=== PATIENT | female | born 1995 | race Caucasian/White ===

== ENCOUNTER 2022-04-26 13:11 | Inpatient (IN) | payer MEDICAID ==
[2022-04-26] MEDS ORDERED: Acetaminophen 325 MG Tab PO PRN (15:00)
[2022-04-26] MEDS ORDERED: Terbutaline 1 MG/ML SDV SUBCUT PRN (15:00)
[2022-04-26] MEDS ORDERED: Oxytocin/0.9 % Sodium Chloride 30 UNIT/500 ML BAG IV SCH (15:00)
[2022-04-26] MEDS: Misoprostol 25 MCG (1/4 of 100 MCG) Tab PO SCH ×4 (15:32→21:47)
[2022-04-27] MEDS: Misoprostol 25 MCG (1/4 of 100 MCG) Tab PO SCH ×2 (00:22→02:26)
[2022-04-27] MEDS: Lactated Ringers 1,000 ML IV SCH ×3 (02:30→07:27)
[2022-04-27] MEDS ORDERED: Ropivacaine/PF 400 MG/200 ML PCA ONE (02:59)
[2022-04-27] MEDS ORDERED: Dexmedetomidine 200 MCG/2 ML SDV ONE (02:59)
[2022-04-27] MEDS ORDERED: ePHEDrine 50 MG/ML SDV IVPUSH PRN ×2 (03:11)
[2022-04-27] MEDS ORDERED: Phenylephrine HCl In 0.9% NaCl 1 MG/10 ML Vial IVPUSH PRN (03:11)
[2022-04-27] MEDS ORDERED: Ropivacaine HCl/PF 400 MG in Premix Bag 1 BAG EPIDUR SCH (03:15)
[2022-04-27] MEDS ORDERED: Phenylephrine HCl In 0.9% NaCl 1 MG/10 ML Vial IVPUSH SCH (03:15)
[2022-04-27] MEDS: Phenylephrine HCl 0.5 MG/5 ML AMP ONE ×2 (04:15→06:26)
[2022-04-27] MEDS ORDERED: Ondansetron 4 MG/2 ML SDV ONE (04:26)
[2022-04-27] MEDS ORDERED: Sodium Chloride 0.9% 20 ML SDV IV PRN (04:56)
[2022-04-27] MEDS ORDERED: Carboprost Tromethamine 250 MCG/1 ML Amp IM PRN (04:56)
[2022-04-27] MEDS ORDERED: Tranexamic Acid 1,000 MG in Sodium Chloride 0.9% 100 ML IV PRN ×2 (04:56→13:43)
[2022-04-27] MEDS ORDERED: Methylergonovine 0.2 MG/1 ML Amp IM PRN ×2 (04:56→13:43)
[2022-04-27] MEDS ORDERED: Butorphanol 1 MG/ML SDV IVPUSH PRN (04:56)
[2022-04-27] MEDS ORDERED: Sodium Chloride 0.9% 2.5 ML Syringe FLUSH PRN (04:56)
[2022-04-27] MEDS ORDERED: Water For Irrigation,Sterile 1,000 ML Container IRR PRN (04:56)
[2022-04-27] MEDS ORDERED: Terbutaline 1 MG/ML SDV SUBCUT PRN (04:56)
[2022-04-27] MEDS ORDERED: Sodium Chloride 0.9% 10 ML Syringe FLUSH PRN (04:56)
[2022-04-27] MEDS ORDERED: Ondansetron 4 MG/2 ML SDV IVPUSH PRN ×2 (04:56→13:43)
[2022-04-27] MEDS ORDERED: Lidocaine 1% 50 ML MDV INJECT PRN (04:56)
[2022-04-27] MEDS ORDERED: Misoprostol 200 MCG Tab PO PRN (04:56)
[2022-04-27] MEDS ORDERED: Oxytocin/0.9 % Sodium Chloride 30 UNIT/500 ML BAG IV SCH ×2 (05:00)
[2022-04-27] MEDS ORDERED: ceFAZolin 2 GM in Sodium Chloride 0.9% 50 ML IV ONE (09:39)
[2022-04-27] MEDS ORDERED: Simethicone 80 MG Tab.Chew PO PRN (13:43)
[2022-04-27] MEDS ORDERED: Acetaminophen 500 MG Tab PO PRN (13:43)
[2022-04-27] MEDS ORDERED: Docusate Sodium 100 MG Cap PO PRN (13:43)
[2022-04-27] MEDS ORDERED: Famotidine 20 MG Tab PO PRN (13:43)
[2022-04-27] MEDS ORDERED: oxyCODONE 5 MG Tab PO PRN (13:43)
[2022-04-27] MEDS ORDERED: Witch Hazel Medicated Pads 40/Jar TOP PRN (13:43)
[2022-04-27] MEDS ORDERED: Benzocaine/Menthol 20%-0.5% Spray 78 GM Cannister TOP PRN (13:43)
[2022-04-27] MEDS ORDERED: Misoprostol 200 MCG Tab RECTAL PRN (13:43)
[2022-04-27] MEDS ORDERED: Bisacodyl 10 MG Supp RECTAL PRN (13:43)
[2022-04-27] MEDS ORDERED: Aluminum Hydroxide/Magnesium Hydroxide/Simethicone XS Susp 30 ML Cup PO PRN (13:43)
[2022-04-27] MEDS ORDERED: Lanolin 100% Cream 7 GM Tube TOP PRN (13:43)
[2022-04-27] MEDS: Ibuprofen 800 MG Tab PO PRN (15:34)
[2022-04-27] MEDS: Acetaminophen 500 MG Tab PO PRN (15:35)
[2022-04-28] MEDS: Ibuprofen 800 MG Tab PO PRN (07:25)
[2022-04-28] MEDS: Acetaminophen 500 MG Tab PO PRN (13:15)
== END 2022-04-28 17:50 | disposition home or self-care (01) | DRG 807 ==
LOC: MW.OBCHECK 13:11 → MW.OB 13:13 → MW.OBCHECK 04-27 04:56 → MW.OB 04-27 04:57 → OBSVTOIN 04-27 13:17 → MW.OB 04-27 17:58
PROVIDERS: ADMIT Obstetrics & Gynecology; ATTEND Obstetrics & Gynecology
PROC: 10E0XZZ Delivery of Products of Conception, External Approach (ICD-10-PCS; principal; 2022-04-27)
PROC: 0HQ9XZZ Repair Perineum Skin, External Approach (ICD-10-PCS; 2022-04-27)
PROC: 3E0R3BZ Introduction of Anesthetic Agent into Spinal Canal, Percutaneous Approach (ICD-10-PCS; 2022-04-27)
PROC: 00HU33Z Insertion of Infusion Device into Spinal Canal, Percutaneous Approach (ICD-10-PCS; 2022-04-27)
PROC: 3E033VJ Introduction of Other Hormone into Peripheral Vein, Percutaneous Approach (ICD-10-PCS; 2022-04-27)
PROC: 3E0P7VZ Introduction of Hormone into Female Reproductive, Via Natural or Artificial Opening (ICD-10-PCS; 2022-04-27)
DX: O48.0 Post-term pregnancy (principal); Z37.0 Single live birth; Z20.822 Contact with and (suspected) exposure to COVID-19; O26.893 Other specified pregnancy related conditions, third trimester; O77.0 Labor and delivery complicated by meconium in amniotic fluid; O70.0 First degree perineal laceration during delivery; Z67.41 Type O blood, Rh negative; Z3A.40 40 weeks gestation of pregnancy
CPT/HCPCS: 36415; 51702; 59025; 59409; 81003; 84112; 85014; 85018; 85027; 86592; 86850; 86900; 86901; A9270-GY; J0690; J2370; J2405; J2590; J2795; J3490; J7050; J7120; U0002

== ENCOUNTER 2023-02-28 16:57 | Emergency (ER) | payer MEDICAID ==
[2023-02-28] MEDS ORDERED: Ibuprofen 600 MG Tab PO ONE (17:50)
[2023-02-28] MEDS ORDERED: Acetaminophen 500 MG Tab PO ONE (17:50)
[2023-02-28 18:45] LABS: CORONAVIRUS COVID-19 NAA NEGATIVE (NEGATIVE); INFLUENZA A NAA NEGATIVE (NEGATIVE); INFLUENZA B NAA NEGATIVE (NEGATIVE); RESPIRATORY SYNCYTIAL VIR NAA NEGATIVE (NEGATIVE)
== END 2023-02-28 19:08 | disposition home or self-care (01) ==
LOC: MW.ED 16:57
DX: J02.9 Acute pharyngitis, unspecified (principal)
CPT/HCPCS: 0241U; 87651; 99285; A9270; 93010; 99284

== ENCOUNTER 2024-03-06 05:14 | Inpatient (IN) | payer MEDICAID ==
[2024-03-06] MEDS ORDERED: Ondansetron 4 MG/2 ML SDV IVPUSH PRN (05:23)
[2024-03-06] MEDS ORDERED: Tranexamic Acid in NACL,ISO-OS 1,000 MG in Premix Bag 1 BAG IV PRN (05:23)
[2024-03-06] MEDS ORDERED: Misoprostol 200 MCG Tab PO PRN (05:23)
[2024-03-06] MEDS ORDERED: Sodium Chloride 0.9% 2.5 ML Syringe FLUSH PRN (05:23)
[2024-03-06] MEDS ORDERED: Lidocaine 1% 50 ML MDV INJECT PRN (05:23)
[2024-03-06] MEDS ORDERED: Sodium Chloride 0.9% 10 ML Syringe FLUSH PRN (05:23)
[2024-03-06] MEDS ORDERED: Methylergonovine 0.2 MG/1 ML Amp IM PRN (05:23)
[2024-03-06] MEDS ORDERED: Terbutaline 1 MG/ML SDV SUBCUT PRN (05:23)
[2024-03-06] MEDS ORDERED: Water For Irrigation,Sterile 1,000 ML Container IRR PRN (05:23)
[2024-03-06] MEDS ORDERED: Sodium Chloride 0.9% 20 ML SDV IV PRN (05:23)
[2024-03-06] MEDS ORDERED: Carboprost Tromethamine 250 MCG/1 mL Vial IM PRN (05:23)
[2024-03-06] MEDS ORDERED: Butorphanol 2 MG/ML SDV IVPUSH PRN (05:23)
[2024-03-06] MEDS ORDERED: Oxytocin/0.9 % Sodium Chloride 30 UNIT/500 ML BAG IV SCH (05:30)
[2024-03-06] MEDS: Lactated Ringers 1,000 ML IV SCH (06:15)
[2024-03-06] MEDS: Misoprostol 25 MCG (1/4 of 100 MCG) Tab VAG PRN ×2 (06:18→10:23)
[2024-03-06 06:43] LABS: HEMATOCRIT 35.7 % (37.0-47.0); HEMOGLOBIN 11.6 g/dL (12.0-16.0); MEAN CORPUSCULAR HEMOGLOBIN 25.7 pg (28.0-32.0); MEAN CORPUSCULAR HGB CONC 32.5 g/dL (32.0-36.0); MEAN PLATELET VOLUME 11.7 fL (9.4-12.3); PLATELET COUNT,PLT 196 K/uL (150-400); RED BLOOD CELL COUNT 4.52 M/uL (4.10-5.30); WHITE BLOOD CELL COUNT,WBC 7.01 K/uL (3.9-11.3)
[2024-03-06 12:33] LABS: A/G RATIO 0.8 (0.9-1.6); ALBUMIN 2.6 g/dL (3.4-5.0); BILIRUBIN TOTAL 0.3 mg/dL (0.2-1.0); CALCIUM 8.5 mg/dL (8.5-10.1); CARBON DIOXIDE,CO2 23.1 mmol/L (21.0-32.0); CREATININE 0.5 mg/dL (0.6-1.0); EST CRCL DRUG DOSING (CG) 152.08 mL/min; PROTEIN TOTAL,TP 5.8 g/dL (6.4-8.2)
[2024-03-06 13:10] LABS: CREATININE,URINE RAND 60.7 mg/dL; PROTEIN CREATININE RATIO,URINE 0.2; PROTEIN,URINE RANDOM 10.5 mg/dL (<11.9)
[2024-03-06] MEDS ORDERED: Bupivacaine 0.5% 10 ML SDV ONE (17:16)
[2024-03-06] MEDS ORDERED: Phenylephrine HCl In 0.9% NaCl 1 MG/10 ML Syringe ONE (17:16)
[2024-03-06] MEDS: Ropivacaine HCl/PF 200 ML ONE (17:36)
[2024-03-06] MEDS ORDERED: ePHEDrine 50 MG/ML SDV IM PRN (17:42)
[2024-03-06] MEDS ORDERED: ePHEDrine 50 MG/ML SDV IVPUSH PRN (17:42)
[2024-03-06] MEDS ORDERED: Bupivacaine 0.5% 10 ML SDV INJECT ONE (17:42)
[2024-03-06] MEDS ORDERED: Ropivacaine HCl/PF 400 MG in Premix Bag 1 BAG EPIDUR SCH (17:45)
[2024-03-06] MEDS ORDERED: dexmedeTOMIDine HCl 200 MCG/2 ML SDV EPIDUR SCH (17:45)
[2024-03-06] MEDS: Phenylephrine HCl In 0.9% NaCl 1 MG/10 ML Syringe IVPUSH PRN (18:41)
[2024-03-06] MEDS: Oxytocin/0.9 % Sodium Chloride 30 UNIT/500 ML BAG IV SCH (20:08)
[2024-03-06] MEDS ORDERED: Benzocaine/Menthol 20%-0.5% Spray 78 GM Cannister TOP PRN (22:34)
[2024-03-06] MEDS ORDERED: Witch Hazel Medicated Pads 40/Jar TOP PRN (22:34)
[2024-03-06] MEDS ORDERED: Lanolin 100% Cream 7 GM Tube TOP PRN (22:34)
[2024-03-07] MEDS: Acetaminophen 500 MG Tab PO PRN (01:09)
[2024-03-07] MEDS: Ibuprofen 800 MG Tab PO PRN (01:10)
[2024-03-07 06:31] LABS: HEMATOCRIT 30.4 % (37.0-47.0)
[2024-03-07] MEDS: Docusate Sodium 100 MG Cap PO PRN (21:07)
== END 2024-03-07 23:45 | disposition home or self-care (01) | DRG 807 ==
LOC: MW.OB 05:14 → OBSVTOIN 22:08 → MW.OB 03-07 01:10
PROVIDERS: ADMIT Obstetrics & Gynecology; ATTEND Obstetrics & Gynecology
PROC: 10E0XZZ Delivery of Products of Conception, External Approach (ICD-10-PCS; principal; 2024-03-06)
PROC: 3E033VJ Introduction of Other Hormone into Peripheral Vein, Percutaneous Approach (ICD-10-PCS; 2024-03-06)
DX: O48.0 Post-term pregnancy (principal); Z37.0 Single live birth; O13.4 Gestational [pregnancy-induced] hypertension without significant proteinuria, complicating childbirth; O26.893 Other specified pregnancy related conditions, third trimester; O99.214 Obesity complicating childbirth; Z3A.41 41 weeks gestation of pregnancy; Z67.91 Unspecified blood type, Rh negative
CPT/HCPCS: 36415; 51702; 59025; 59409; 80053; 82570; 84156; 85014; 85018; 85027; 86592; 86850; 86900; 86901; A9270-GY; J0665; J2371; J2590; J2795; J7120